=== PATIENT | female | born 1980 | race Caucasian/White ===

== ENCOUNTER → 2016-08-20 | Outpatient (CLI) | payer MEDICAID ==
[~2016-08-20] MED LIST: PRENATAL VITAMI1 TA3 PO; PRILOSEC20 M1 PO; PRILOSEC20 MG PO; SERTRALINE 100100 MG PO
--- NOTE | 2016-08-23 21:30 | RADIOLOGY REPORT PS360 ---
DIG MAMM-SCREEN RAVI W/CAD CAD Screening ORDERING PHYSICIAN : Samuel Candelario MD PATIENT AGE: 36 years GENDER: Female COMPARISON: Previous mammograms: INDICATION: Routine screening no hormones.. No reported areas of concern. .. Noncontributory family history TECHNIQUE: Standard CC and MLO images were obtained. R2 CAD reviewed. Axillary cc views included in helpful. FINDINGS: Fairly dense breast bilaterally. . .. Ultrasound can be useful to compliment & augment screening mammography in breast of this dense character. Certainly if any If any palpable areas arise ultrasound be suggested. RIGHT BREAST: Area of what appear to be summation shadow density seen deep breast on the cc view, dissipates on the axillary cc view as well as the right MLO view. No persistent or focal areas of significant concern identified LEFT BREAST: No focal areas of concern at the left breast ---IMPRESSION:----- Dense breasts decreased sensitivity of mammography No persistent nor discrete focal areas of concern on this BASELINE mammogram.. Areas of density deep deep right breast dissipate from CC to MLO and axillary cc view which supports we are merely viewing a summation shadow. Follow-up one year encouraged to confirm baseline routine follow-up thereafter BI-RADS CATEGORY: 2_Benign RECOMMENDED FOLLOWUP: 12M 12 MONTH FOLLOW-UP (A letter has been sent to the patient regarding results of the study.)
== END ==
LOC: RAD 16:49
DX: Z12.31 Encounter for screening mammogram for malignant neoplasm of breast (principal)
CPT/HCPCS: G0202

== ENCOUNTER → 2017-03-26 | Outpatient (CLI) | payer MEDICAID ==
--- NOTE | 2017-03-26 11:47 | RADIOLOGY REPORT PS360 ---
ABDOMEN-FLAT UPRIGHT HISTORY: ABD PAIN ORDERING PHYSICIAN: RAI LUNDY PATIENT AGE: 36 years COMPARISON: None FINDINGS: Nonspecific nonobstructive bowel gas pattern. No free air, urolithiasis, obvious masses, or acute bony anomalies. IMPRESSION: No acute finding
== END ==
LOC: RAD 10:50
DX: R10.84 Generalized abdominal pain (principal)